=== PATIENT | male | born 1955 | race African-American/Black ===

== ENCOUNTER 2020-10-18 09:19 | Emergency (ER) | payer OTHER, MEDICAID ==
[~2020-10-18] VITALS: Ht 175.3 cm; Wt 68.0 kg
[2020-10-18] MEDS ORDERED: ACETAMINOPHEN 325MG TABLET PO ONE (09:45)
[2020-10-18] MEDS ORDERED: CEFTRIAXONE SODIUM 1 G/VIAL IM ONE (09:45)
[2020-10-18] MEDS ORDERED: TETANUS, DIPHTHERIA, PERTUSSIS VAC/PF 0.5ML (>7YR OLD) IM ONE (09:45)
[2020-10-18] MEDS ORDERED: LIDOCAINE HCL 1% 20ML VIAL (Pyxis) INJ INFIL ONE (09:45)
[2020-10-18] MEDS ORDERED: CEPH250C2 MT (11:17)
[2020-10-18 11:28] VITALS: BP 160/95
== END 2020-10-18 11:29 | disposition home or self-care (01) ==
LOC: ER 09:19
DX: S71.122A Laceration with foreign body, left thigh, initial encounter (principal); F17.200 Nicotine dependence, unspecified, uncomplicated; F14.10 Cocaine abuse, uncomplicated; I10 Essential (primary) hypertension; X58.XXXA Exposure to other specified factors, initial encounter; Y93.89 Activity, other specified; Y92.89 Other specified places as the place of occurrence of the external cause; Y99.8 Other external cause status
CPT/HCPCS: 73552; 90471; 90715; 96372; 99284; J0696; J3490; Z7610